=== PATIENT | female | born 1950 | race Caucasian/White ===

== ENCOUNTER 2018-04-30 12:27 | Emergency (ER) | payer MEDICARE ==
[2018-04-30 12:54] VITALS: BP 142/68
--- NOTE | 2018-04-30 13:08 | UC ---
Skin Complaint HPI - HPI Summary HPI Summary: Patient got a bug bite 2 days ago under the right breast, it developed a little pimple and now it is red, hard and elevated with a larger area of erythema. painful to touch - History of Current Complaint Chief Complaint: UCSkin Time Seen by Provider: 04/30/18 12:56 Stated Complaint: SKIN CONCERN Hx Obtained From: Patient ?: No Onset/Duration: Sudden Onset, Lasting Days Skin Exposure Onset/Duration: Days Ago Timing: Constant Onset Severity: Mild Current Severity: Moderate Pain Intensity: 3 Location: Discrete Character: Redness, Raised, Painful Aggravating Factor(s): Clothing, Touch Alleviating Factor(s): Nothing Related History: Insect Bite/Sting - Allergy/Home Medications Allergies/Adverse Reactions: Allergies Allergy/AdvReac Type Severity Reaction Status Date / Time cefaclor [From [facility]] Allergy Hives Verified 04/30/18 12:45 Sulfa (Sulfonamide Allergy Unknown Verified 04/30/18 12:45 Antibiotics) Reaction Details Home Medications: Home Medications Gabapentin CAP(*) [Neurontin 300 CAP(*)] 300 mg PO BEDTIME 04/30/18 [History Confirmed 04/30/18] Review of Systems Constitutional: Negative Skin: Other - abscess Eyes: Negative ENT: Negative Respiratory: Negative Cardiovascular: Negative Gastrointestinal: Negative Genitourinary: Negative Motor: Negative Neurovascular: Negative Musculoskeletal: Negative Neurological: Negative Psychological: Negative Is Patient Immunocompromised?: No All Other Systems Reviewed And Are Negative: Yes PMH/Surg Hx/FS Hx/Imm Hx Previously Healthy: Yes - Surgical History Surgical History: Yes Surgery Procedure, Year, and Place: cholecystectomy,hysterectomy, hernia repair , appendectomy?? - Family History Known Family History: Positive: Hypertension, Other - neg for MRSA - Social History Alcohol Use: None Substance Use Type: None Smoking Status (MU): Former Smoker When Did the Patient Quit Smoking/Using Tobacco: 1996 Physical Exam Triage Information Reviewed: Yes Appearance: Well-Appearing, Pain Distress, Obese Vital Signs: Initial Vital Signs Temp 97.9 F 04/30/18 12:49 Pulse 62 04/30/18 12:49 Resp 20 04/30/18 12:49 BP 142/68 04/30/18 12:49 Pulse Ox 97 04/30/18 12:49 Vital Signs Reviewed: Yes Eye Exam: Normal ENT Exam: Normal ENT: Positive: Pharyngeal erythema, TMs normal Dental Exam: Normal Neck exam: Normal Neck: Positive: Supple, Nontender, No Lymphadenopathy Respiratory Exam: Normal Respiratory: Positive: Chest non-tender, Lungs clear, Normal breath sounds Cardiovascular Exam: Normal Cardiovascular: Positive: RRR, No Murmur, Pulses Normal Abdominal Exam: Normal Abdomen Description: Positive: Nontender, No Organomegaly, Soft Bowel Sounds: Positive: Present Musculoskeletal Exam: Normal Neurological Exam: Normal Psychological Exam: Normal Skin: Positive: Other - small abscess under right breast, no pusutle noted, small area of induration palpated Course/Dx - Course Course Of Treatment: hx obtained, exam performed ,meds reviewed, treated for small abscess - Differential Diagnoses - Skin Complaint Differential Diagnoses: Abscess, Cellulitis, Contact Dermatitis, MRSA, Urticaria - Diagnoses Provider Diagnoses: abscess under right breast Discharge - Sign-Out/Discharge Documenting (check all that apply): Patient Departure All imaging exams completed and their final reports reviewed: No Studies - Discharge Plan Condition: Stable Disposition: HOME Prescriptions: Cephalexin CAP* [Keflex CAP*] 500 mg PO TID #21 cap Patient Education Materials: Abscess (ED) Referrals: Nyla Brambila MD [Primary Care Provider] - Additional Instructions: 1. take the medication as prescribed 2. keep area clean and dry 3. Warm compresses multiple times a day 4. Follow up if not improving, if it starts to drain, keep drainage covered. - Billing Disposition and Condition Condition: STABLE Disposition: Home
== END 2018-04-30 13:12 | disposition home or self-care (01) ==
LOC: UCCORT 12:27
DX: N61.1 Abscess of the breast and nipple (principal); Z88.1 Allergy status to other antibiotic agents; Z88.2 Allergy status to sulfonamides; Z87.891 Personal history of nicotine dependence; W57.XXXA Bitten or stung by nonvenomous insect and other nonvenomous arthropods, initial encounter; Y92.9 Unspecified place or not applicable
CPT/HCPCS: 99212; G0463